=== PATIENT | female | born 1955 | race Caucasian/White ===

== ENCOUNTER 2024-10-13 11:06 | Emergency (ER) | payer MEDICARE, SELFPAY ==
[2024-10-13 11:11] VITALS: BP 151/67; PULSE 80; RESP 20; TEMP 36.7; O2SAT 96; BMI 25.0
--- NOTE | 2024-10-13 11:48 | ED.GENADULT ---
HPI - General Adult General Chief complaint: Eye Problems Stated complaint: sent by [facility] eye problem Time Seen by Provider: 10/13/24 11:48 Source: patient Mode of arrival: Ambulatory History of Present Illness HPI narrative: 69-year-old female with history of right-sided ocular/ophthalmic migraines, some blurred vision intermittently to the right visual field, not usually in the left eye, now having recent days intermittent right eye blurred vision in the central white spot that seems to be persisting in her vision. No history of prior strokes. No injury or trauma to the eye. No headaches. No focal weakness to face arm or leg. No focal numbness to face arm or leg. No irregular heartbeat sensation, no history of atrial fibrillation. She does not take any blood thinner medications regularly, she does not take aspirin daily. Related Data Allergies Allergy/AdvReac Type Severity Reaction Status Date / Time No Known Drug Allergies Allergy Verified 10/13/24 11:11 Patient History Social History Smoking Status: Never smoker Smoking Status: Never smoker Exam Narrative Exam Narrative: GENERAL: Well-developed patient, in mild distress. HEAD: Atraumatic. Normocephalic. EYES: Pupils equal round and reactive. Extraocular motions intact. No scleral icterus. No injection or drainage. ENT: Nose without bleeding, purulent drainage. Throat without erythema, tonsillar hypertrophy or exudate. Airway patent. NECK: Trachea midline. Non tender CARDIOVASCULAR: Regular rate and rhythm without murmurs, gallops, or rubs. RESPIRATORY: Clear to auscultation. Breath sounds equal bilaterally. No wheezes, rales, or rhonchi. GASTROINTESTINAL: Abdomen soft, non-tender, nondistended. EXTREMITIES: No edema or joint tenderness. BACK: Nontender without deformity or crepitance. No flank tenderness. NEURO: AOx3. Cranial nerves unremarkable. No visual field defects. Motor 5/5 upper extremities, motor 5/5 lower extremities. SKIN: No rash or erythema of visible areas Initial Vital Signs Initial Vital Signs: Vital Signs Temperature 98.1 F 10/13/24 11:11 Pulse Rate 80 10/13/24 11:11 Respiratory Rate 20 10/13/24 11:11 Blood Pressure 151/67 H 10/13/24 11:11 Pulse Oximetry 96 10/13/24 11:11 Oxygen Delivery Method Room Air 10/13/24 11:11 Course Orders Ordered: ED Orders 10/13/24 11:50 CT angio head and neck Stat XR chest 1V Stat EKG-12 Lead Stat 10/13/24 11:59 Complete Blood Count AUTO DIFF Stat Comprehensive Metabolic Panel Stat Lipase Stat Troponin & CK Cardiac Panel Stat 10/13/24 12:35 CT head/brain wo con Stat 10/13/24 13:37 MR head/brain wo con Stat Vital Signs Vital signs: Vital Signs - 8 hr 10/13/24 11:11 10/13/24 12:49 10/13/24 12:49 Temperature 98.1 F Pulse Rate 80 82 Respiratory Rate 20 Blood Pressure 151/67 H 166/74 H Pulse Oximetry 96 100 Oxygen Delivery Method Room Air 10/13/24 14:29 10/13/24 14:30 10/13/24 14:30 Temperature Pulse Rate 72 Respiratory Rate Blood Pressure 138/63 Pulse Oximetry 98 100 Oxygen Delivery Method 10/13/24 14:31 10/13/24 16:14 Temperature 98 F 98.6 F Pulse Rate 71 69 Respiratory Rate 16 20 Blood Pressure 138/63 134/68 Pulse Oximetry 100 100 Oxygen Delivery Method Room Air Room Air Medical Decision Making Lab Data Lab results reviewed: Yes I reviewed the patient's lab results. Lab results narrative: White blood cell count 4300, hemoglobin 12.3, platelets adequate. Basic metabolic panel unremarkable. Liver functions normal, lipase normal. Troponin negative 10/13/24 11:59 10/13/24 11:59 Labs: Lab Results 10/13/24 Range/Units 11:59 WBC 4.3 L (4.5-11.0) X10^3/uL RBC 4.14 (4.0-5.2) X10^6/uL Hgb 12.3 (12.0-16.0) g/dL Hct 37.0 (36-46) % MCV 89.2 (80-100) fL MCH 29.8 (26-34) PG MCHC 33.4 (30-36) % RDW 13.9 (11.6-14.8) % Plt Count 209 (150-400) X10^3/uL Neut % (Auto) 56.7 (50-75) % Lymph % (Auto) 30.9 (25-40) % [place] % (Auto) 6.7 (3-14) % Eos % (Auto) 4.0 (2-4) % Baso % (Auto) 1.7 (0-2) % Neut # (Auto) 2400 (9677-6887) /uL Lymph # (Auto) 1300 (8657-2886) /uL [place] # (Auto) 300 (0-900) /uL Eos # (Auto) 200 (0-450) /uL Baso # (Auto) 100 (0-100) /uL Sodium 137 (137-145) mmol/L Potassium 4.2 (3.4-5.1) mmol/L Chloride 103 (98-107) mmol/L Carbon Dioxide 27 (22-32) mmol/L BUN 19 H (7-17) mg/dL Creatinine 0.89 (0.52-1.04) mg/dL Estimated GFR > 60 (>60) mL/min BUN/Creatinine Ratio 21.3 (6-22) Glucose 92 (80-110) mg/dL Calcium 9.5 (8.4-10.2) mg/dL Total Bilirubin 0.4 (0.2-1.3) mg/dL AST 36 (14-36) IU/L ALT 24 (<35) IU/L Alkaline Phosphatase 54 (38-126) U/L Total Creatine Kinase 120 (30-135) U/L Troponin I < 0.012 (0.01-0.034) ng/mL Total Protein 7.6 (6.3-8.2) g/dL Albumin 4.6 (3.5-5.0) g/dL Globulin 3.0 (1.7-4.1) g/dL Albumin/Globulin Ratio 1.5 (1.0-2.8) Lipase 191 (23-300) U/L Imaging Data Chest x-ray: Radiologist's Impression: [address] [id number] XRay Report Signed Patient: Edelmira Arias MR#: [id number] : 1955 Acct:[id number] Age/Sex: 69 / F Date of Service: 10/13/24 Loc: ED Accession Number: [id number] Procedure: XR chest 1V Ordering Provider: Albert Carranza MD PROCEDURE: XR CHEST 1V INDICATIONS: chest pain TECHNIQUE: One view of the chest was acquired. COMPARISON: None. FINDINGS: Surgical changes and devices: None. Lungs and pleura: Lungs are clear. No pleural effusions or pneumothorax. Mediastinum: Mediastinal contours appear normal. Heart size is normal. Bones and chest wall: No suspicious bony lesions. Overlying soft tissues appear unremarkable. IMPRESSION: No acute cardiopulmonary pathology. Dictated by: Bhavin Funk M.D. on 10/13/2024 at 12:03 Approved by: Bhavin Funk M.D. on 10/13/2024 at 12:03 CT scan - head: Radiologist's Impression: [place] [id number] CT Scan Report Signed Patient: Edelmira Arias MR#: [id number] : 1955 Acct:[id number] Age/Sex: 69 / F Date of Service: 10/13/24 Loc: ED Accession Number: [id number] Procedure: CT head/brain wo con Ordering Provider: Albert Carranza MD PROCEDURE: CT HEAD/BRAIN WO CON INDICATIONS: flashers in vision TECHNIQUE: Noncontrast 4.5 mm thick angled axial sections acquired from the foramen magnum to the vertex, with coronal and sagittal reformats. For radiation dose reduction, the following was used: automated exposure control, adjustment of mA and/or kV according to patient size. COMPARISON: None. FINDINGS: Image quality: Diagnostic. CSF spaces: Basal cisterns are patent. No extra-axial fluid collections. The ventricles are symmetric in size and shape. Brain: No intracranial bleeds or masses. There is cerebral volume loss for age, with resultant ventricular and sulcal prominence. There are periventricular and deep white matter chronic small vessel ischemic changes. There is intracranial internal carotid artery atherosclerosis. Skull and face: Calvarium and visualized facial bones appear intact, without suspicious lesions. Sinuses: Visualized sinuses and mastoids are clear. IMPRESSION: No acute intracranial pathology. Dictated by: Tavo Cruz M.D. on 10/13/2024 at 12:50 Approved by: Tavo Cruz M.D. on 10/13/2024 at 12:51 CTA - brain/neck: Radiologist's Impression: [address] [address] [address] Scan Report Signed Patient: Edelmira Arias MR#: [id number] : 1955 Acct:[id number] Age/Sex: 69 / F Date of Service: 10/13/24 Loc: ED Accession Number: [id number] Procedure: CT angio head and neck Ordering Provider: Albert Carranza MD PROCEDURE: CT ANGIO HEAD AND NECK INDICATIONS: eye flashers TECHNIQUE: After the administration of intravenous contrast, 1 mm thick sections acquired from the aortic arch through the [place]. 3-dimensional gvqwocx-bqiouervy-uqmkvsslhj (MIP) and/or volume rendering reformats were acquired of the central intracranial vasculature and neck separately. For radiation dose reduction, the following was used: automated exposure control, adjustment of mA and/or kV according to patient size. COMPARISON: None. FINDINGS: Image quality: Diagnostic. BRAIN: Please refer to same day CT of the head. HEAD CT ANGIOGRAPHY: Anterior circulation: Intracranial internal carotid arteries are normal in size and flow with atherosclerotic calcifications. The flow within the paired anterior cerebral arteries is normal and symmetric. The flow within the middle cerebral arteries is normal and symmetric. The anterior communicating artery is seen. No aneurysms are seen. Posterior circulation: Visualized portions of the vertebral arteries demonstrate normal caliber, and join to form a normal appearing basilar artery. Predominantly origin of the manager banquet bilaterally. Flow within the posterior cerebral arteries is normal and symmetric. No aneurysms are seen. NECK CT ANGIOGRAPHY: Carotid system: Aberrant right subclavian artery. The origins of the common carotid arteries appear patent. The common carotid arteries demonstrate normal caliber and courses. The bifurcation regions are both widely patent. The internal carotid arteries demonstrate normal calibers and courses. Posterior circulation: The origins of the vertebral arteries both appear widely patent. The more superior extracranial portions of both vertebral arteries also demonstrate normal courses and calibers. They join to form a normal appearing basilar artery. Soft tissues: Visualized neck soft tissues demonstrate no suspicious abnormalities. Bones: No suspicious bony lesions. Visualized cervical spine appears normally aligned. Degenerative changes of the spine. IMPRESSION: No significant intracranial arterial abnormality is seen. No significant abnormality is seen within the arteries of the neck. Any quantitative measurements of stenosis were performed using NASCET criteria. Dictated by: Tavo Cruz M.D. on 10/13/2024 at 13:12 Approved by: Tavo Cruz M.D. on 10/13/2024 at 13:21 MDM Narrative Medical decision making narrative: 69-year-old female with history of ocular migraines, blurred vision in the right eye intermittently, recently happening but also now with component of white spot fixed visual defect in the right visual field as well, since Saturday 2 days ago. No history of anticoagulation, not taking aspirin. Unremarkable neurological exam today. Concern for possible stroke, versus intra-ocular etiology of her visual problems. Labs and screening EKG pending. CT noncontrast head scan ordered. If GFR favorable anticipate CTA head and neck vessels. CT head noncontrast, no acute changes, see radiology report CTA head and neck vessels, no acute changes, no significant narrowing or thrombosis, see radiology report. Results discussed, MRI brain can be ordered to further evaluate occipital cortex. They would like to have study done. MRI brain ordered. MRI brain, no acute changes, see radiology report. Copy of CT/CTA/MRI reports given to patient. Encouraged to take aspirin daily for now. Follow up with eye clinic advised 10/15/2024. Home with family. Return precautions discussed. Discharge Plan Departure Patient Disposition: Home Clinical Impression: Blurred vision, right eye Activity Restrictions/Additional Instructions: History of right eye related ocular migraines in the past, with some blurred vision, now with focal white spot for the last couple of days that seems to be new and persisting. No history of prior strokes. CT head no contrast, CT angiogram of the head and neck vessels, MRI of the brain studies were done tonight, no evidence for stroke findings at this time. Further evaluation would be prudent with ophthalmology evaluation, none on-call here. Consider eye clinic evaluation on 10/15/2024 when local areas might be open for clinic consultations. Take aspirin daily for now. Further follow up with eye clinic, contact information given for local eye clinic providers if he had not have your own ophthalmologists to see. Call their office 10/15/2024 for close follow up. Return earlier to this/nearest emergency department for any change worsening symptoms or any concerns prior Referrals: Criselda Escobar MD [Primary Care Provider] - Tomasa Gonsales MD [Physician] - Luis Manuel Ricks MD [Physician] - Stand Alone Forms: Patient Portal/API/Survey
[2024-10-13 12:07] LABS: Add Manual Diff / Slide Review NO; Basophils Absolute Auto 100 /uL (0-100); Basophils Percent Auto 1.7 % (0-2); Eosinophils Absolute Auto 200 /uL (0-450); Hemoglobin 12.3 g/dL (12.0-16.0); Lymphocytes Absolute Auto 1300 /uL (1100-4500); Lymphocytes Percent Auto 30.9 % (25-40); Mean Corpuscular HGB Conc 33.4 % (30-36); Mean Corpuscular Hemoglobin 29.8 PG (26-34); Mean Corpuscular Volume 89.2 fL (80-100); Monocytes Absolute Auto 300 /uL (0-900); Monocytes Percent Auto 6.7 % (3-14); Neutrophils Absolute Auto 2400 /uL (1500-7000); Neutrophils Percent Auto 56.7 % (50-75); Platelet Count 209 X10^3/uL (150-400); Red Blood Cell Count 4.14 X10^6/uL (4.0-5.2); Red Cell Distribution Width 13.9 % (11.6-14.8); White Blood Cell Count 4.3 X10^3/uL (4.5-11.0)
[2024-10-13 12:23] LABS: Alanine Aminotransferase 24 IU/L (<35); Albumin 4.6 g/dL (3.5-5.0); Albumin Globulin Ratio 1.5 (1.0-2.8); Alkaline Phosphatase 54 U/L (38-126); Aspartate Aminotransferase 36 IU/L (14-36); BUN Creatinine Ratio 21.3 (6-22); Bilirubin Total 0.4 mg/dL (0.2-1.3); Blood Urea Nitrogen 19 mg/dL (7-17); Calcium 9.5 mg/dL (8.4-10.2); Carbon Dioxide 27 mmol/L (22-32); Chloride 103 mmol/L (98-107); Creatine Kinase 120 U/L (30-135); Estimated Glomerular Filt Rate > 60 mL/min (>60); Glucose 92 mg/dL (80-110); HEMOLYSIS < 15 (0-50); Lipase 191 U/L (23-300); Potassium 4.2 mmol/L (3.4-5.1); Sodium 137 mmol/L (137-145); Total Protein 7.6 g/dL (6.3-8.2)
[2024-10-13 12:35] LABS: Troponin I < 0.012 ng/mL (0.01-0.034)
--- NOTE | 2024-10-13 12:35 | DI.CT.S_ITS ---
PROCEDURE: CT HEAD/BRAIN WO CON INDICATIONS: flashers in vision TECHNIQUE: Noncontrast 4.5 mm thick angled axial sections acquired from the foramen magnum to the vertex, with coronal and sagittal reformats. For radiation dose reduction, the following was used: automated exposure control, adjustment of mA and/or kV according to patient size. COMPARISON: None. FINDINGS: Image quality: Diagnostic. CSF spaces: Basal cisterns are patent. No extra-axial fluid collections. The ventricles are symmetric in size and shape. Brain: No intracranial bleeds or masses. There is cerebral volume loss for age, with resultant ventricular and sulcal prominence. There are periventricular and deep white matter chronic small vessel ischemic changes. There is intracranial internal carotid artery atherosclerosis. Skull and face: Calvarium and visualized facial bones appear intact, without suspicious lesions. Sinuses: Visualized sinuses and mastoids are clear. IMPRESSION: No acute intracranial pathology. Dictated by: Tavo Cruz M.D. on 10/13/2024 at 12:50 Approved by: Tavo Cruz M.D. on 10/13/2024 at 12:51
[2024-10-13 12:49] VITALS: BP 166/74; PULSE 82; O2SAT 100
--- NOTE | 2024-10-13 13:37 | DI.MRI.S_ITS ---
PROCEDURE: MR HEAD/BRAIN WO CON INDICATIONS: visual changes, stroke eval TECHNIQUE: Non-contrast axial T1 spin echo, axial T2 fast spin echo, sagittal and axial FLAIR, coronal T2 fast spin echo, axial gradient echo, axial diffusion and ADC through the brain. COMPARISON: None. FINDINGS: Image quality: Excellent. CSF spaces: Ventricles appear symmetric in size and shape. Basal cisterns are patent. No extra-axial fluid collections. Brain: No intracranial bleeds or mass effects. There is cerebral volume loss for age. There are periventricular and deep white matter chronic small vessel ischemic changes. Brainstem appears normal. Diffusion-weighted images show no acute infarct. No chronic ischemic insults. Normal intravascular flow voids are present. Skull and face: Calvarial bone marrow is normal in signal. Orbits are normal. Sinuses: Sinuses and mastoids are clear. IMPRESSION: No acute or subacute infarct. No acute intracranial abnormalities. Mild age-related global volume loss and chronic microvascular ischemic changes. Dictated by: Tavo Cruz M.D. on 10/13/2024 at 14:16 Approved by: Tavo Cruz M.D. on 10/13/2024 at 14:17
[2024-10-13 14:29] VITALS: O2SAT 98
[2024-10-13 14:30] VITALS: BP 138/63; PULSE 72; O2SAT 100
[2024-10-13 14:31] VITALS: BP 138/63; PULSE 71; RESP 16; TEMP 36.6; O2SAT 100
[2024-10-13 16:14] VITALS: BP 134/68; PULSE 69; RESP 20; TEMP 37; O2SAT 100
== END 2024-10-13 16:16 | disposition home or self-care (01) ==
PROVIDERS: Emergency Provider Emergency Medicine; PCP Surgery
DX: H53.8 Other visual disturbances (principal); Z86.69 Personal history of other diseases of the nervous system and sense organs
CPT/HCPCS: 36415; 70450; 70496; 70498; 70551; 71045; 80053; 82550; 83690; 84484; 85025; 99284; Q9967